=== PATIENT | female | born 1985 | race Caucasian/White ===

== ENCOUNTER 2023-12-27 08:26 | Day surgery (SDC) | payer OTHER, SELFPAY ==
[2023-12-13 13:10] VITALS: BMI 31.4
[2023-12-13 13:33] LABS: % Basophils 1.5 % (0-2); % Eosinophils 2.9 % (0-6); % Immature Granulocytes 0.2 % (0-0.5); % Lymphocytes 29.1 % (20.5-51.1); % Monocytes 6.9 % (1.7-9.3); % Neutrophils 59.4 % (42.2-75.2); Absolute Basophils 0.1 10^3/uL (0-0.2); Absolute Eosinophils 0.1 10^3/uL (0-0.7); Absolute Lymphocytes 1.4 10^3/uL (1.2-3.4); Absolute Monocytes 0.3 10^3/uL (0.1-0.6); Absolute Neutrophils 2.8 10^3/uL (1.4-6.5); Hematocrit 43.2 % (37.0-47.0); Hemoglobin 15.3 g/dL (12.0-16.0); Mean Corp Hgb Conc. 35.4 g/dL (33.0-37.0); Mean Corpuscular Hgb 31.9 pg (27.0-31.0); Mean Corpuscular Volume 90.2 fL (81.0-99.0); Nucleated Red Blood Cells % 0 %; Platelet Count 192 10^3/uL (130-400); Red Blood Cell Count 4.79 10^6/uL (4.20-5.40); White Blood Cell Count 4.8 10^3/uL (4.8-10.8)
[2023-12-13 14:14] LABS: INR 1.17; PT 14.8 Sec (11.4-14.6)
[2023-12-13 15:02] LABS: ALT (SGPT) 25 U/L (0-35); AST (SGOT) 28 U/L (14-36); Alkaline Phosphatase 65 U/L (38-126); Blood Urea Nitrogen 13 mg/dl (7-17); Calcium 8.8 mg/dl (8.4-10.2); Carbon Dioxide 26 mmol/L (22-30); Chloride 107 mmol/L (98-107); Estimated Creatinine Clearance 119 ml/min; Glucose 86 mg/dl (70-99); Magnesium 2.1 mg/dl (1.6-2.3); Potassium 4.7 mmol/L (3.5-5.1); Sodium 135 mmol/L (135-145); Total Bilirubin 0.9 mg/dl (0.2-1.3); Total Protein 6.8 g/dl (6.3-8.2); eGFR > 60.00
[2023-12-14 11:56] LABS: ALT (SGPT) 25 U/L (0-35); AST (SGOT) 28 U/L (14-36); Albumin 3.9 g/dl (3.5-5.0); Alkaline Phosphatase 66 U/L (38-126); Blood Urea Nitrogen 13 mg/dl (7-17); Calcium 8.6 mg/dl (8.4-10.2); Carbon Dioxide 26 mmol/L (22-30); Chloride 106 mmol/L (98-107); Estimated Creatinine Clearance 119 ml/min; Glucose 92 mg/dl (70-99); Magnesium 2.1 mg/dl (1.6-2.3); Potassium 4.1 mmol/L (3.5-5.1); Sodium 135 mmol/L (135-145); Total Bilirubin 0.9 mg/dl (0.2-1.3); Total Protein 6.7 g/dl (6.3-8.2); eGFR > 60.00
[2023-12-27] VITALS (18 sets, daily range): BP systolic 75–156; BP diastolic 51–101
[2023-12-27 08:55] LABS: HCG, Urine Qualitative Screen Negative
[2023-12-27 11:51] LABS: ACT-LR - POC 234 Seconds (116-155)
[2023-12-27 12:12] LABS: ACT-LR - POC 281 Seconds (116-155)
--- NOTE | 2023-12-27 12:34 | ITS.CL.ABL ---
Manager Of Regulatory Affairs - Ablation
Ablation
Procedure Report:
ELECTROPHYSIOLOGY ABLATION STUDY
DATE:: December 27, 2023 REFERRING: Dr. Cristofer Ruiz
INDICATION: Paroxysmal supraventricular tachycardia in the form of atrial fibrillation. Also noted to have episodes of paroxysmal supraventricular tachycardia which feel different to the patient and symptomatically much less frequent than her
atrial fibrillation.
HISTORY: See H and P. Of note after 5-day discontinuation of flecainide prior to procedure as well as AV rogers agent the patient noted predominantly symptoms of atrial fibrillation
ANTIARRHYTHMIC DRUG: Flecainide
PRE-PROCEDURE JOSE: No intracardiac thrombus on intracardiac ultrasound
PRESENTING RHYTHM: Sinus bradycardia
'TIME-OUT': called and confirmed.
SEDATION/ANESTHESIA: provided via the anesthesia department using general anesthesia (LMA).
INTRAVENOUS/ARTERIAL ACCESS:
Right femoral venous - 8Fr
Left femoral venous - 8 Fr, 6 Fr
Left femoral arterial - 5 Fr
Ultrasound guidance for bilateral femoral vein access was utilized by me to obtain access with demonstration of normal anatomy
[id number] suture was utilized for groin closure
PROCEDURE:
1. A decapolar CS catheter was placed within the CS for mapping and pacing. This was also used as the reference catheter for the 3-D map. Baseline EP study was performed with atrial catheter, His bundle recording and quadripolar catheter to the
right ventricle. This demonstrated midline and decremental conduction with ventricular extrastimuli and no evidence for eccentric retrograde conduction. Atrial Wenke block at 380 ms with normal AH and HV interval. Normal sinus node recovery. We
were able to induce single AV rogers echo beats without more than 1 single AV rogers echo beat with atrial extrastimuli and burst atrial pacing from both atria. As such we proceeded to pulmonary vein isolation as below and repeated EP study after
pulmonary vein isolation. Burst pacing down to by atrial refractoriness and atrial extrastimuli did not induce any supraventricular tachycardia. Of note the patient did have spontaneous atrial triplets and up to 5 beats of paroxysmal atrial
tachycardia which was spontaneous from the left superior pulmonary vein.
2. The intracardiac ultrasound catheter was positioned in the RA to identify the FO for targeting of transseptal puncture, assist in identification of the pulmonary vein ostia, monitoring pre and post ablation pulmonary vein flow velocities,
monitoring for 'bubble' formation during RF application as a sign of thermal injury, and to monitor for pericardial effusion during mapping and ablation procedure. Left atrial size, LV ejection fraction, and pulmonary vein flows were monitored
pre and post ablation procedure. The other valves were inspected and found to be free of significant regurgitation or stenosis.
3. Half of the calculated heparin bolus was administered prior to the first transeptal puncture. Transseptal puncture was performed to diagnose RA and LA pressure so that safety of LA mapping and ablation could be further assessed, and to access
the left atrium and pulmonary veins for mapping and ablation. This entailed advancing an 8 Fr SL-1 sheath with dilator into the superior vena cava and withdrawing both (monitoring intracardiac ultrasound, fluoroscopy and tip pressure) with the tip
oriented toward the atrial septum. The fossa ovalis was engaged (indicated by sudden displacement of the sheath tip as well as tenting of the fossa seen on intracardiac ultrasound). Left atrial access required a pass with the Brock[place]rough needle
extended. Left atrial catheter position was confirmed by pressure monitoring (RA mean pressure 8 mm Hg and LA mean pressure 14 mm Hg), LA saturation ( 99 %), as well as fluoroscopy. The sheath was advanced over the dilator and positioned in the
left atrium. Given the relatively diminutive left atrium the flex cath sheath was exchanged over a ProTrac wire in the left atrium. The remainder of the calculated heparin bolus was administered and heparin was
infused to maintain ACT at 300 -350 seconds throughout the case.
4. RA pacing was performed via the proximal decapolar poles and LA pacing was performed via the distal decapolr poles.
5. A quadrapolar catheter was first positioned at the His position for His Bundle recording which was tagged via the 3-D Navex sytem, and then passed to the RVA for RV pacing and recording.
6. The 28 mm cryoballoon and 15 mm octapolar G recording catheter placed in each of the LIPV, LSPV, RSPV and the RIPV.
7. Next, a 3-D map was created using Navex. A 3-D reconstructed CT image was compared to the 3-D Navex map to assist in anatomic interpretation, mapping and ablation. The CT image and the NavX image were fused.
8. 1 distinct 3 and 1 distinct 2-minute freezing application were given the left superior pulmonary vein left inferior pulmonary vein and right inferior pulmonary veins. The right superior pulmonary was given 1 distinct 3-minute freezing
application. No loss of phrenic or cooling of the esophagus was noted. Entrance and exit block was confirmed in all 4 pulmonary veins.
9. Normal sinus node and AV rogers function noted as above
TOTAL FLOURO TIME: 17.2 minutes 58 mgy
TOTAL RF DURATION: 0 minutes
REVERSAL OF HEPARIN: 35 mg of protamine, slow IV administration
COMPLICATIONS:
None
Intracardiac US shows no pericardial effusion post ablation.
SUMMARY:
Complex left atrial mapping and ablation.
Isolation of all 4 pulmonary veins as above. Dual AV rogers physiology was noted with 1 single AV rogers echo beat as well as 4-5 beats of spontaneous left superior pulmonary vein atrial tachycardia. Given noninducibility for supraventricular
arrhythmia no additional ablation was performed beyond the pulmonary veins as above.
RECOMMENDATIONS:
1. Admit to monitored bed.
2. Resume anticoagulation for 3 months
3. Discontinue flecainide and continue metoprolol
4. Out of bed 4 hours consider same-day discharge
Copy to: Dr. Cristofer Ruiz at Cardiology
[2023-12-27] MEDS: TORADOL 30 MG IV (13:31)
--- NOTE | 2023-12-27 15:55 | W.PN.UPDATE ---
Update Note
Progress Note Update
38 yo WF s/p PVI (same day). She had some chest and groin pain improved with Toradol, no sob, twila diet, voiding, b/l groins with F08 intact, soft. EKG SR no ectopy. She will continue OAC Eliquis dose at 7pm at home. She will stop flecainide and
continue metoprolol. Activity restrictions reviewed. She will f/u Dr. Ruiz in 2 mo. She is for d/c home after 530p if groins stable.
SUMMARY:�
Complex left atrial mapping and ablation.
Isolation of all 4 pulmonary veins as above.� Dual AV rogers physiology was noted with 1 single AV rogers echo beat as well as 4-5 beats of spontaneous left superior pulmonary vein atrial tachycardia.� Given noninducibility for supraventricular
arrhythmia no additional ablation was performed beyond the pulmonary veins as above.
RECOMMENDATIONS:
1. Admit to monitored bed.�
2. Resume anticoagulation for 3 months
3.� Discontinue flecainide and continue metoprolol
4.� Out of bed 4 hours consider same-day discharge
Copy to: Dr. Cristofer Ruiz at Cardiology
== END 2023-12-27 18:15 | disposition home or self-care (01) ==
LOC: CATH 08:26
PROVIDERS: ATTENDING PHYSICIAN Internal Medicine Cardiovascular Disease; FAMILY PHYSICIAN Family Medicine; OTHER PHYSICIAN Student in an Organized Health Care Education/Training Program
DX: I48.0 Paroxysmal atrial fibrillation (principal); I10 Essential (primary) hypertension; I73.00 Raynaud's syndrome without gangrene; F90.9 Attention-deficit hyperactivity disorder, unspecified type; Z79.01 Long term (current) use of anticoagulants
CPT/HCPCS: C1766; C1730 ×2; C1894; C1893; C1733; C1892; C1759; 36415; 75572; 76937; 80053; 81025; 83735; 85025; 85347; 85610; 86850; 86900; 86901; 93005; 93656; Q9967

== ENCOUNTER → 2024-01-05 13:51 | Outpatient (REF) | payer OTHER, SELFPAY | LOC: RAD 13:51 | PROVIDERS: ATTENDING PHYSICIAN Internal Medicine Cardiovascular Disease; FAMILY PHYSICIAN Nurse Practitioner; REFERRING PHYSICIAN Nurse Practitioner | DX: S30.1XXA Contusion of abdominal wall, initial encounter (principal) | CPT/HCPCS: 93926 ==